=== PATIENT | male | born 1975 | race Two or more races ===

== ENCOUNTER → 2017-05-04 | Outpatient (REF) | payer BC ==
[2017-05-07 00:07] LABS: Lyme Disease IgG/IgM Antibodie <0.91 ISR (0.00-0.90); Lyme Disease IgM Ab Quantitati <0.80 index (0.00-0.79)
== END ==
LOC: M SFHCLERA 19:08
PROVIDERS: ATTEND Nurse Practitioner Family
DX: L03.317 Cellulitis of buttock (principal); Z91.89 Other specified personal risk factors, not elsewhere classified

== ENCOUNTER → 2020-12-25 | Outpatient (CLI) | payer BC ==
[~2020-12-25] MED LIST: PROHANCE 279.3MG/ML 15ML VIAL As Ordered ONE; PROHANCE 279.3MG/ML 5ML VIAL As Ordered ONE
== END ==
LOC: M RAD 08:56
PROVIDERS: ATTEND Physician Assistant
DX: R97.20 Elevated prostate specific antigen [PSA] (principal); Z53.9 Procedure and treatment not carried out, unspecified reason